=== PATIENT | male | born 1965 | race Caucasian/White ===

== ENCOUNTER → 2018-04-21 17:51 | Outpatient (CLI) | payer BC, SELFPAY ==
--- NOTE | 2018-04-21 18:14 | DI.RAD.S_ITS ---
PROCEDURE: XR FOOT LT MIN 3V INDICATIONS: 1st MTP swelling TECHNIQUE: 3 views of the foot were acquired. COMPARISON: None. FINDINGS: Bones: No fractures or dislocations. No suspicious bony lesions. There is mild first MTP joint degeneration. No definite erosions are seen. Diffuse interphalangeal degenerative joint disease in the lesser toes. Small posterior and plantar calcaneal spur. Soft tissues: Mild soft tissue swelling seen at the first MTP joint. IMPRESSION: Mild first MTP degeneration. Mild first MTP soft tissue swelling. Recommend clinical correlation. Posterior and plantar calcaneal spurs are Dictated by: Slade Garcia M.D. on 04/21/2018 at 18:56 Approved by: Slade Garcia M.D. on 04/21/2018 at 18:58
== END ==
PROVIDERS: Visit Provider Physician Assistant
DX: M25.475 Effusion, left foot (principal)
CPT/HCPCS: 36415; 73630; 84550

== ENCOUNTER → 2019-09-30 09:34 | Outpatient (CLI) | payer BC, SELFPAY ==
--- NOTE | 2019-09-30 | DI.US.S_ITS ---
PROCEDURE: US SCROTUM INDICATIONS: SCROTAL PAIN TECHNIQUE: Real-time scanning was performed of the scrotum and testicles, with image documentation. Color and pulse Doppler interrogation was performed of both testicles. COMPARISON: None. FINDINGS: Right: Testicle is normal in size at 4.8 x 3.2 x 2.2 cm, and homogenous in echotexture. Epididymis is normal in overall size and morphology. No hydrocele is seen. Overlying scrotal skin is normal in thickness. Left: Testicle is normal in size at 4.6 x 2.8 x 5 cm, and homogeneous in echotexture. Epididymis is normal in overall size. A 6 mm left epididymal head cyst can be seen. There is a trace left-sided hydrocele. Overlying scrotal skin is normal in thickness. Doppler: Color and pulse Doppler demonstrate normal and symmetric arterial flow in both testicles. Bilateral varicoceles can be seen. IMPRESSION: Normal appearing testicles. No abnormal testicular vascularity. Bilateral varicoceles are seen. Trace left-sided hydrocele. Dictated by: Anderson Yu M.D. on 09/30/2019 at 10:39 Approved by: Anderson Yu M.D. on 09/30/2019 at 10:49
== END ==
PROVIDERS: Referring Provider Specialist; Visit Provider Specialist
DX: N50.82 Scrotal pain (principal); I86.1 Scrotal varices
CPT/HCPCS: 76870

== ENCOUNTER → 2019-11-11 08:34 | Outpatient (CLI) | payer BC, SELFPAY ==
--- NOTE | 2019-11-11 | DI.CT.S_ITS ---
PROCEDURE: CT KIDNEY URETER BLADDER (KUB) INDICATIONS: Unspecified symptoms and signs involving the urinary system TECHNIQUE: Noncontrast 5 mm thick sections acquired from the diaphragms to the symphysis. 5 mm thick coronal and sagittal reformats were then performed. For radiation dose reduction, the following was used: automated exposure control, adjustment of mA and/or kV according to patient size. COMPARISON: None. FINDINGS: Image quality: Excellent. Lung bases: Lung bases are clear. Heart size is normal. Urinary system: Both kidneys are normal in size. No kidney stones. No hydronephrosis or perinephric fat stranding. Both ureters appear non-dilated throughout their expected courses. Bladder wall thickness is normal; no calcified bladder stones. Other solid organs: Liver is normal in size. Gallbladder is partially decompressed but appears normal. Pancreas is normal in contours. Spleen is normal in size. No adrenal nodules. Peritoneum and bowel: Unenhanced bowel loops demonstrate normal wall thickness and caliber. Occasional sigmoid diverticulosis. Normal appendix. No free fluid or air. Nodes and vessels: No retroperitoneal or mesenteric adenopathy by size criteria. Aorta and inferior vena cava are normal in caliber. Abdominal wall: No ventral hernias. Pelvis: No free pelvic fluid. No inguinal hernias or adenopathy. Prostate gland size at the upper limits of normal measuring 4.5 cm in transverse diameter. Bones: No suspicious bony lesions. Degenerative changes in the hip joints. No vertebral body compression fractures. IMPRESSION: 1. No evidence of urinary calcification or obstructive uropathy. 2. Minimal prostatomegaly. Dictated by: Selena Reza M.D. on 11/11/2019 at 8:56 Approved by: Selena Reza M.D. on 11/11/2019 at 9:03
== END ==
PROVIDERS: PCP Internal Medicine; Referring Provider Specialist; Visit Provider Specialist
DX: R39.9 Unspecified symptoms and signs involving the genitourinary system (principal); K57.30 Diverticulosis of large intestine without perforation or abscess without bleeding
CPT/HCPCS: 74176

== ENCOUNTER → 2020-03-08 14:54 | Outpatient (ROUT) | payer BC, SELFPAY ==
[2020-03-08 15:15] LABS: Add Manual Diff / Slide Review NO; Basophils Absolute Auto 100 /uL (0-100); Basophils Percent Auto 0.7 % (0-2); Eosinophils Absolute Auto 300 /uL (0-450); Eosinophils Percent Auto 3.6 % (2-4); Hematocrit 46.7 % (41-53); Hemoglobin 15.9 g/dL (13.5-17.5); Lymphocytes Absolute Auto 2300 /uL (1100-4500); Lymphocytes Percent Auto 30.3 % (25-40); Mean Corpuscular HGB Conc 34.2 % (30-36); Mean Corpuscular Hemoglobin 31.7 PG (26-34); Mean Corpuscular Volume 92.9 fL (80-100); Monocytes Absolute Auto 600 /uL (0-900); Monocytes Percent Auto 7.4 % (3-14); Neutrophils Absolute Auto 4400 /uL (1500-7000); Platelet Count 262 X10^3/uL (150-400); Red Blood Cell Count 5.03 X10^6/uL (4.5-5.9); Red Cell Distribution Width 13.3 % (11.6-14.8); White Blood Cell Count 7.6 X10^3/uL (4.5-11.0)
[2020-03-08 16:22] LABS: TSH w/ Reflex to FT4 2.25 uIU/mL (0.47-4.68)
[2020-03-08 16:46] LABS: Alanine Aminotransferase 26 IU/L (<50); Albumin 4.3 g/dL (3.5-5.0); Albumin Globulin Ratio 1.7 (1.0-2.8); Alkaline Phosphatase 73 U/L (38-126); Aspartate Aminotransferase 27 IU/L (17-59); BUN Creatinine Ratio 14.3 (6-22); Bilirubin Total 0.6 mg/dL (0.2-1.3); Blood Urea Nitrogen 13 mg/dL (9-20); Calcium 9.2 mg/dL (8.4-10.2); Carbon Dioxide 28 mmol/L (22-32); Chloride 103 mmol/L (98-107); Cholesterol 188 mg/dL (140-199); Estimated Glomerular Filt Rate > 60.0 mL/min (>60); Globulin 2.5 g/dL (1.7-4.1); Glucose 117 mg/dL (70-100); HDL Cholesterol 28 mg/dL (40-60); HEMOLYSIS < 15 (0-50); Potassium 3.7 mmol/L (3.4-5.1); Sodium 140 mmol/L (137-145); Total Protein 6.8 g/dL (6.3-8.2); Triglycerides 416 mg/dL (35-150); Uric Acid 7.8 mg/dL (3.5-8.5)
== END ==
PROVIDERS: PCP Internal Medicine; Visit Provider Internal Medicine
DX: Z00.00 Encounter for general adult medical examination without abnormal findings (principal); R00.2 Palpitations; M10.9 Gout, unspecified
CPT/HCPCS: 80053; 80061; 84443; 84550; 85025

== ENCOUNTER → 2020-07-07 10:17 | Outpatient (CLI) | payer BC, SELFPAY ==
[2020-07-07 12:23] LABS: Prostate Specific Antigen 1.93 ng/mL (0.10-4.00)
== END ==
PROVIDERS: PCP Internal Medicine; Referring Provider Specialist; Visit Provider Specialist
DX: N40.0 Benign prostatic hyperplasia without lower urinary tract symptoms (principal)
CPT/HCPCS: 36415; 83655; 84153

== ENCOUNTER 2021-08-25 14:29 | Emergency (ER) | payer BC, SELFPAY ==
[2021-08-25 15:00] VITALS: BP 148/87; PULSE 78; RESP 20; TEMP 35.9; O2SAT 96; BMI 26.9
--- NOTE | 2021-08-25 15:07 | DI.US.S_ITS ---
PROCEDURE: US PERIPH VENOUS LOW EXTREM LT INDICATIONS: r/o dvt TECHNIQUE: Real-time imaging, as well as color and pulse Doppler interrogation, were performed of the lower extremity deep veins from the inguinal ligament to the popliteal fossa. COMPARISON: None. FINDINGS: The common femoral, femoral and popliteal veins are normally compressible, and free of intraluminal thrombus. Color and pulse Doppler demonstrate normal phasic intraluminal flow. There is normal augmentation response to distal compression maneuver. Distal soft tissue swelling is seen, with a poorly defined fluid collection seen at the level of the ankle, which measures 1.5 x 0.9 x 2.3 cm. IMPRESSION: Negative for deep venous thrombosis. Poorly defined fluid collection seen at the level of the ankle. The clinical significance of this is uncertain, although it may represent a joint effusion. Dictated by: Anderson Yu M.D. on 08/25/2021 at 15:01 Approved by: Anderson Yu M.D. on 08/25/2021 at 15:02
--- NOTE | 2021-08-25 18:37 | ED.EXTPRO ---
HPI - Extremity Problem General Chief complaint: Extremity Problem,Nontraumatic Stated complaint: Possible blood clot in left leg Time Seen by Provider: 08/25/21 18:37 Source: patient Mode of arrival: Family Vehicle Limitations: no limitations History of Present Illness HPI Narrative: This is a 56-year-old male comes emergency department with concern for blood clot in his left leg. 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 Patient noticed his she on his left foot felt tight. This morning when he woke up was quite painful to walk on. Patient states that he has noticed some swelling on the lateral side of the foot and that the blood clot vessels seem enlarged. Patient has not any fevers, no warmth, no redness it is appreciated. He has a history of gout in his great toe on the left remotely when he was eating risk it 3 times a week but no longer does this. Patient has not had any fevers or chills. He does have pain with weight-bearing. He does not recall a traumatic history but he states it does feel like he dropped something on his foot. He does not have pain up into the ankle or the leg. He did take 4 aspirin today, he takes a PPI daily MVI. He denies any other major medical issues. Related Data Previous Rx's Medication Instructions Recorded tadalafil 2.5 mg tablet (Cialis) 2.5 mg PO .5mg MDD #90 tab MDD 5 01/25/ mg MDD ibuprofen 600 mg tablet 600 mg PO Q6H PRN #20 tab 08/25/21 sulfamethoxazole 800 1 tab PO Q12H #14 tab 08/25/21 mg-trimethoprim 160 mg tablet (Bactrim DS) Allergies Allergy/AdvReac Type Severity Reaction Status Date / Time codeine Allergy Verified 08/25/21 15:07 gluten Allergy Verified 08/25/21 15:07 lactase [From Dairy Aid] Allergy Verified 08/25/21 15:07 Penicillins Allergy Verified 08/25/21 15:07 wheat Allergy Verified 08/25/21 15:07 Review of Systems Review of Systems ROS Unobtainable: All systems reviewed & are unremarkable except as noted in HPI and below Patient History Medical History BPH (benign prostatic hyperplasia) BPH w urinary obs/LUTS GERD (gastroesophageal reflux disease) Gout Family History Father Cancer High cholesterol Hypertension Thyroid disorder Grandfather Stroke Hypertension Mother Migraines Social History marital status: number of children: 1 Smoking Status: Never smoker alcohol intake: never caffeine: No Smoking Status: Never smoker alcohol intake frequency: 0-2 drinks per day Substance Use Type: does not use Exam Narrative Exam Narrative: GENERAL: Alert and oriented x three, male in mild distress. HEENT: Head normocephalic, atraumatic, EOMI, pupils reactive, face symmetric, moist mucous membranes NECK: Supple, full range of motion CARDIOVASCULAR: Regular rate and rhythm without murmurs, rubs or gallops. RESPIRATORY: Breath sounds equal bilaterally, no wheezes rales or rhonchi. EXTREMITIES: Normal range of motion, no clubbing. Neurovascularly intact. Patient has mild tenderness over the proximal 5th metatarsal. He does have some swelling localized to the proximal 5th metatarsal and dorsum of the foot. There is no erythema, warmth. There is no induration. Patient is nontender elsewhere in his foot. He has 2+ dorsalis pedis and posterior pulses. He has normal sensation throughout the foot. There is some very faint erythema over the dorsum but not the lateral portion of swelling. No Bruising or ecchymosis. No lacerations or obvious injuries. NEUROLOGICAL: Cranial nerves II through XII grossly intact. Moving all extremities SKIN: Warm, dry, no petechiae, no rashes or lesions. Initial Vital Signs Initial Vital Signs: Vital Signs Temperature 96.6 F L 08/25/21 15:00 Pulse Rate 78 08/25/21 15:00 Respiratory Rate 20 08/25/21 15:00 Blood Pressure 148/87 H 08/25/21 15:00 Pulse Oximetry 96 08/25/21 15:00 Course Orders Ordered: ED Orders 08/25/21 18:42 XR foot LT min 3V Stat Vital Signs Vital signs: Vital Signs - 8 hr 08/25/21 19:31 Pulse Rate 66 Respiratory Rate 12 Blood Pressure 132/86 Pulse Oximetry 98 MDM - Extremity (Nontraumatic) Imaging Data US - DVT: Radiologist's Impression: Yuri Soliz??56??M??1965 ? Allergy/Adv: codeine, gluten, lactase, Penicillins, wheat (More??) Close Vascular Ultrasound (Signed) Anderson Yu - 08/25/21 Abdomen/Pelvis CT (Signed) Abdi Rezaistin - 11/11/19 Scrotum Ultrasound (Signed) Anderson Yu - 09/30/19 Foot X-Ray (Signed) Slade Garcia - 04/21/18 Launch?Image [address] [address] Ultrasound Report Signed Patient: Yuri Soliz MR#: [id number] : 1965 Acct:[id number] Age/Sex: 56 / M Date of Service: 08/25/21 Loc: ED Accession Number: [id number] ?? Procedure: US periph venous low extrem lt Ordering Provider: Rhianna Mccann MD PROCEDURE:? US PERIPH VENOUS LOW EXTREM LT ? INDICATIONS:? r/o dvt ? TECHNIQUE:? Real-time imaging, as well as color and pulse Doppler interrogation, were performed of the lower extremity deep veins from the inguinal ligament to the popliteal fossa.? ? COMPARISON:? None. ? FINDINGS:? The common femoral, femoral and popliteal veins are normally compressible, and free of intraluminal thrombus.? Color and pulse Doppler demonstrate normal phasic intraluminal flow.? There is normal augmentation response to distal compression maneuver. ? ? Distal soft tissue swelling is seen, with a poorly defined fluid collection seen at the level of the ankle, which measures 1.5 x 0.9 x 2.3 cm. ? ? IMPRESSION:? ? Negative for deep venous thrombosis. ? Poorly defined fluid collection seen at the level of the ankle.? The clinical significance of this is uncertain, although it may represent a joint effusion. ? ? Dictated by: Anderson Yu M.D. on 08/25/2021 at 15:01 ? ? Approved by: Anderson Yu M.D. on 08/25/2021 at 15:02?? Extremity x-ray #1: Radiologist's Impression: [address] [address] XRay Report Signed Patient: Yuri Soliz MR#: [id number] : 1965 Acct:[id number] Age/Sex: 56 / M Date of Service: 08/25/21 Loc: ED Accession Number: [id number] ?? Procedure: XR foot LT min 3V Ordering Provider: Shantal Her D.O. PROCEDURE:? XR FOOT LT MIN 3V ? INDICATIONS:? pain swelling ? TECHNIQUE:? 3 views of the foot were acquired.? ? COMPARISON:? [facility], CR, XR FOOT LT MIN 3V, 04/21/2018, 17:58. ? FINDINGS:? ? Bones:? No fractures or dislocations.? No suspicious bony lesions.? Scattered IP degenerative changes are present most notable at the 1st MTP joint. ? Soft tissues:? No tibiotalar joint effusion.? Achilles tendon appears normal.? ? ? IMPRESSION:? No visualized acute fracture or dislocation. However, if clinical concern and/or pain persist, short interval imaging followup in 7-10 days is recommended, as occult injury cannot be definitively excluded. ? ? Dictated by: Flor Leyva M.D. on 08/25/2021 at 19:09 ? ? Approved by: Flor Leyva M.D. on 08/25/2021 at 19:10?? [facility] Narrative Medical decision making narrative: This is a 56-year-old male who comes with concern for DVT. 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 DVT is negative on ultrasound but he has [place] poorly defined fluid collection at the level of the ankle. This does not correlate directly with the area of swelling on his foot. He does have some tenderness of the proximal 5th metatarsal. He does not recall a traumatic injury but x-ray was included and is negative. Patient does have a history of gout in his 1st great toe. Discussed with patient this is a possibility. He is comfortable with NSAIDs at this time but we did discuss there is some light erythema and if he has worsening symptoms antibiotic would be appropriate and was provided. Return precautions were discussed and that with more time patient's exact cause of symptoms may be revealed more clearly. Discharge Plan Departure Patient Disposition: Home Clinical Impression: Localized swelling of left foot Instructions: DI for Cellulitis -- Adult Activity Restrictions/Additional Instructions: In the next week if you are not having any improvement. Your ultrasound shows a small partial fluid collection at the ankle. You may take ibuprofen up to 600 mg every 6 hours as needed for pain and/or Tylenol up to a 1000 mg every 8 hours. Antibiotics can be taken 1 tablet every 12 hours. Prescription sent to [facility] in [place]. Please return for fevers, new or worsening redness, swelling, increasing pain, weakness numbness, swelling of her leg or other new or concerning symptoms. Prescriptions: New sulfamethoxazole-trimethoprim [Bactrim DS] 800-160 mg tablet 1 tab PO Q12H Qty: 14 0RF ibuprofen 600 mg tablet 600 mg PO Q6H PRN (Reason: pain) Qty: 20 0RF No Action tadalafil [Cialis] 2.5 mg tablet 2.5 mg PO .5mg MDD MDD 5 mg MDD Qty: 90 0RF Referrals: Otoniel Melendez MD [Primary Care Provider] -
--- NOTE | 2021-08-25 18:42 | DI.RAD.S_ITS ---
PROCEDURE: XR FOOT LT MIN 3V INDICATIONS: pain swelling TECHNIQUE: 3 views of the foot were acquired. COMPARISON: [facility], , XR FOOT LT MIN 3V, 04/21/2018, 17:58. FINDINGS: Bones: No fractures or dislocations. No suspicious bony lesions. Scattered IP degenerative changes are present most notable at the 1st MTP joint. Soft tissues: No tibiotalar joint effusion. Achilles tendon appears normal. IMPRESSION: No visualized acute fracture or dislocation. However, if clinical concern and/or pain persist, short interval imaging followup in 7-10 days is recommended, as occult injury cannot be definitively excluded. Dictated by: Flor Leyva M.D. on 08/25/2021 at 19:09 Approved by: Flor Leyva M.D. on 08/25/2021 at 19:10
[2021-08-25 19:31] VITALS: BP 132/86; PULSE 66; RESP 12; O2SAT 98
== END 2021-08-25 19:32 | disposition home or self-care (01) ==
PROVIDERS: Emergency Provider Emergency Medicine; PCP Family Medicine
DX: M79.672 Pain in left foot (principal); M79.89 Other specified soft tissue disorders
CPT/HCPCS: 73630; 93971; 99283

== ENCOUNTER → 2022-05-28 11:38 | Outpatient (CLI) | payer BC, SELFPAY ==
[2022-05-28 12:46] LABS: Add Manual Diff / Slide Review NO; Basophils Absolute Auto 100 /uL (0-100); Basophils Percent Auto 0.9 % (0-2); Eosinophils Absolute Auto 200 /uL (0-450); Eosinophils Percent Auto 3.1 % (2-4); Hematocrit 47.2 % (41-53); Hemoglobin 15.9 g/dL (13.5-17.5); Lymphocytes Absolute Auto 2400 /uL (1100-4500); Lymphocytes Percent Auto 32.3 % (25-40); Mean Corpuscular HGB Conc 33.7 % (30-36); Mean Corpuscular Volume 91.9 fL (80-100); Monocytes Absolute Auto 500 /uL (0-900); Monocytes Percent Auto 6.8 % (3-14); Neutrophils Absolute Auto 4300 /uL (1500-7000); Neutrophils Percent Auto 56.9 % (50-75); Platelet Count 297 X10^3/uL (150-400); Red Blood Cell Count 5.13 X10^6/uL (4.5-5.9); Red Cell Distribution Width 13.8 % (11.6-14.8); White Blood Cell Count 7.5 X10^3/uL (4.5-11.0)
[2022-05-28 13:29] LABS: Alanine Aminotransferase 30 IU/L (<50); Albumin 4.3 g/dL (3.5-5.0); Albumin Globulin Ratio 1.4 (1.0-2.8); Alkaline Phosphatase 70 U/L (38-126); Aspartate Aminotransferase 26 IU/L (17-59); BUN Creatinine Ratio 19.2 (6-22); Bilirubin Total 0.6 mg/dL (0.2-1.3); Blood Urea Nitrogen 20 mg/dL (9-20); Calcium 9.6 mg/dL (8.4-10.2); Carbon Dioxide 28 mmol/L (22-32); Chloride 101 mmol/L (98-107); Cholesterol 194 mg/dL (140-199); Estimated Glomerular Filt Rate > 60 mL/min (>60); Glucose 87 mg/dL (70-100); HDL Cholesterol 34 mg/dL (40-60); HEMOLYSIS < 15 (0-50); LDL Cholesterol Calculated 98 mg/dL (<100); Potassium 4.5 mmol/L (3.4-5.1); Sodium 140 mmol/L (137-145); Total Protein 7.3 g/dL (6.3-8.2); Triglycerides 308 mg/dL (35-150)
[2022-05-28 13:57] LABS: TSH w/ Reflex to FT4 2.18 uIU/mL (0.47-4.68)
== END ==
PROVIDERS: PCP Family Medicine; Referring Provider Family Medicine; Visit Provider Family Medicine
DX: Z13.220 Encounter for screening for lipoid disorders (principal); I45.2 Bifascicular block; R00.2 Palpitations
CPT/HCPCS: 36415; 80053; 80061; 84443; 85025

== ENCOUNTER → 2022-06-07 07:49 | Outpatient (CLI) | payer BC, SELFPAY ==
--- NOTE | 2022-06-07 07:50 | DI.ECHO.S_ITS ---
[place] [place]---------+ [facility] +---------+ : : [address] : : : : [id number] : : : : Phone: [phone]+ Echocardiogram Report + + :Name: TIFFANIE URBANO Study Date: 06/07/2022 Height: 74 in : :[facility] ReadingLocation: Weight: 219 lb : : Gender: Male BSA: 2.3 m2 : :: 1965 Age: 57 yrs BP: 155/88 mmHg: :Reason For Study: Palpitations : :Ordering Physician: BRIANA, : :HERMAN Performed By: Stanford Tovar : :Referring: HERMAN WARREN : + + Interpretation Summary The left ventricle is normal in size and wall thickness. Left ventricular systolic function is normal. The ejection fraction is estimated to be 60-65%. There are no focal wall motion abnormalities. Diastolic parameters suggest probable normal left ventricular diastolic function and normal filling pressures. The right ventricle is normal in size and function. The right ventricular systolic pressure is estimated to be at least 23 mmHg based on an estimated right atrial pressure of 3 mm Hg. Both atria are normal in size. There is mild mitral regurgitation. There is no other significant valvular heart disease. The aortic root is normal size. Procedure: A two-dimensional transthoracic echocardiogram with color flow and Doppler was performed. The study quality was technically adequate. There is no prior echocardiogram noted for this patient. The patient was in normal sinus rhythm during the exam. Left Ventricle: The left ventricle is normal in size and wall thickness. Left ventricular systolic function is normal. The ejection fraction is estimated to be 60-65%. There are no focal wall motion abnormalities. Diastolic parameters suggest probable normal left ventricular diastolic function and normal filling pressures. Right Ventricle: The right ventricle is normal in size and function. Atria: Both atria are normal in size. The interatrial septum grossly appears intact with no obvious evidence for an atrial septal defect. Mitral Valve: The mitral valve is normal in structure and function. There is mild mitral regurgitation. Aortic Valve: The aortic valve is normal in structure and function. No aortic regurgitation is present. Tricuspid Valve: The tricuspid valve is normal in structure and function. There is trace tricuspid regurgitation. The right ventricular systolic pressure is estimated to be at least 23 mmHg based on an estimated right atrial pressure of 3 mm Hg. Pulmonic Valve: The pulmonic valve is normal in structure and function. There is no pulmonic valvular regurgitation. There is no other significant valvular heart disease. Great Vessels: The aortic root is normal size. The dimensions of the ascending aorta are normal. The IVC is of normal diameter and collapses greater than 50% with a sniff. This suggests a low right atrial pressure of 3 mm Hg. Pericardium/ Pleura There is no pericardial effusion. There is no pleural effusion. MMode/2D Measurements & Calculations LVIDd: 5.1 cm LVOT diam: 2.3 cm LVIDs: 3.4 cm Ao root diam: 3.4 cm FS: 33.2 % asc Aorta Diam: 3.6 cm IVSd: 1.1 cm LVPWd: 1.1 cm LV james. diameter/BSA (cm/m^2): 2.2 LV sys. diameter/BSA (cm/m^2): 1.5 LA A2 area: 19.7 cm2 RA long axis: 5.0 cm LA A4 area: 23.1 cm2 RA area: 13.3 cm2 LA length (vol): 5.9 cm RA vol: 30.1 ml LA vol: 65.8 ml RA : 13.3 ml/m2 LA vol index: 29.1 ml/m2 TAPSE: 2.4 cm Doppler Measurements & Calculations Ao V2 max: 167.7 cm/sec LVOT Max Esteban: 137.5 cm/sec Ao V2 mean: 121.8 cm/sec LV V1 max P.6 mmHg Ao max P.2 mmHg LV V1 VTI: 28.8 cm Ao mean P.4 mmHg FRANCINE(I,D): 3.3 cm2 Ao V2 VTI: 35.7 cm FRANCINE(V,D): 3.4 cm2 sev ratio: 0.81 FRANCINE indexed to BSA (cm^2/m^2): 1.5 MV E max esteban: 83.6 cm/sec TR max esteban: 221.9 cm/sec MV A max esteban: 79.6 cm/sec TR max P.7 mmHg MV E/A: 1.1 Med Peak E' Esteban: 7.7 cm/sec E/E' med: 10.8 Lat Peak E' Esteban: 10.1 cm/sec E/E' lat: 8.3 E/e' average: 9.6 MV dec time: 0.21 sec SV(LVOT): 118.0 ml Reading Physician:08:54 AM
== END ==
PROVIDERS: PCP Family Medicine; Referring Provider Family Medicine; Visit Provider Family Medicine
DX: I34.0 Nonrheumatic mitral (valve) insufficiency (principal); I45.2 Bifascicular block
CPT/HCPCS: 93306

== ENCOUNTER 2022-06-09 20:27 | Emergency (ER) | payer BC, SELFPAY ==
[2022-06-09] VITALS (9 sets, daily range): BP systolic 175–185; BP diastolic 95–106; PULSE 65–88; RESP 14–24; TEMP 37.2; O2SAT 94–97
--- NOTE | 2022-06-09 20:41 | DI.RAD.S_ITS ---
PROCEDURE: XR ACUTE ABDOMEN SERIES INDICATIONS: severe upper abdominal pain TECHNIQUE: One view chest and two views of the abdomen were acquired. COMPARISON: None. FINDINGS: Surgical changes and devices: Cardiac pacing device is seen projecting over left upper lung field.. Chest: Lungs are clear. Heart size is normal. No pleural effusions. No pneumoperitoneum. Abdomen: [id number] fecal stasis throughout the colon is seen. No bowel obstruction. No gross pneumoperitoneum. No suspicious calcifications. Visualized solid organ contours appear normal. Bones: No suspicious bony lesions. IMPRESSION: [id number]-[id number] constipation. No gross free air. No acute cardiopulmonary pathology. Dictated by: Michael Hong M.D. on 06/09/2022 at 21:05 Approved by: Michael Hong M.D. on 06/09/2022 at 21:05
--- NOTE | 2022-06-09 21:05 | DI.US.S_ITS ---
PROCEDURE: US ABDOMEN LIMITED INDICATIONS: severe epigastric pain TECHNIQUE: Real-time scanning was performed of the abdominal and retroperitoneal organs, with image documentation. COMPARISON: [facility], CT, CT ABDOMEN PELVIS W CON, 06/09/2022, 21:57. FINDINGS: Liver: Liver is normal in size. Diffusely increased liver parenchymal echotexture is seen consistent with hepatic steatosis which was also seen on CT study. No discrete hepatic lesion is noted. Gallbladder: Gallbladder is contracted. No gallstone. No gallbladder wall thickening or pericholecystic fluid. No sonographic Jennings sign. Biliary ducts: Intrahepatic bile ducts are non-dilated. Extrahepatic bile duct caliber measures 2.4 mm. Normal is 6-7 mm or less in diameter, or 10 mm or less post-cholecystectomy. Pancreas: Visualized portions of the pancreas are sonographically normal. Kidneys: Lobulated area involving mid pole right kidney measures 3.2 x 3 x 2.4 cm in size. No hydronephrosis. No definite solid appearing renal lesion. IMPRESSION: 1. Hepatic steatosis, no discrete hepatic lesion. 2. Normal appearing gallbladder. No biliary ductal dilatation. 3. Questionable lobulated area involving mid pole of right kidney as above, please correlate with CT of abdomen and pelvis findings. Dictated by: Michael Hong M.D. on 06/09/2022 at 22:11 Approved by: Michael Hong M.D. on 06/09/2022 at 22:15
[2022-06-09] MEDS: MAG HYDROX/ALUMINUM/SIMETH SUS 20 ML, LIDOCAINE VISCOUS 2% 15 ML PO (21:06)
--- NOTE | 2022-06-09 21:07 | ED.ABDPAIN ---
HPI - Abdominal Pain General Chief Complaint: Abdominal Pain Stated Complaint: ABD pain...pos food poisoning Time Seen by Provider: 06/09/22 20:32 Source: patient Mode of arrival: Ambulatory History of Present Illness HPI narrative: 57-year-old male nonsmoker with noncontributory medical history presents with a chief complaint of severe epigastric pain that started about 4 or 5 hours ago. He states that it has no obvious provocation, palliation and denies any radiation. He states his sharp and stabbing pain that comes in waves every few minutes. He states it is 10/10 and he is never experienced this before. He denies any alcohol. He states that he is nauseated but denies any vomiting. He denies any prior abdominal surgeries and states he is had no change in his bowel habits such as constipation or diarrhea. He denies any dysuria, frequency or urgency Related Data Previous Rx's Medication Instructions Recorded tadalafil 2.5 mg tablet (Cialis) 2.5 mg PO .5mg MDD #90 tabs 01/25/21 ibuprofen 600 mg tablet 600 mg PO Q6H PRN pain #20 tabs 08/25/21 ondansetron 4 mg disintegrating 4 mg PO TID-QID PRN nausea and 06/09/22 tablet vomiting #10 tabs pantoprazole 40 mg tablet,delayed 40 mg PO DAILY #30 tabs 06/09/22 release (Protonix) Allergies Allergy/AdvReac Type Severity Reaction Status Date / Time codeine Allergy Verified 08/25/21 15:07 gluten Allergy Verified 08/25/21 15:07 lactase [From Dairy Aid] Allergy Verified 08/25/21 15:07 Penicillins Allergy Verified 08/25/21 15:07 wheat Allergy Verified 08/25/21 15:07 Review of Systems Review of Systems Narrative: GENERAL: Denies chills, fatigue, malaise, fever, sweats. HEENT: Denies sinus pain, ear pain, sore throat, difficulty swallowing, dizziness. RESPIRATORY: Denies dyspnea, cough, wheezing, hemoptysis, sputum. CARDIOVASCULAR: Denies chest pain, palpitations, orthopnea, edema, GASTROINTESTINAL: See HPI : Denies dysuria, frequency, incontinence, hematuria, urinary retention. MUSCULOSKELETAL: denies weakness, joint pain, or bony pain SKIN: Denies rash, skin lesions, or other NEUROLOGIC: Denies weakness, headache, numbness, change in speech, confusion, seizures, incoordination. PSYCHIATRIC: No concerning psychosocial issues. 12 point review of systems is negative except for those stated above Patient History Medical History BPH (benign prostatic hyperplasia) BPH w urinary obs/LUTS GERD (gastroesophageal reflux disease) Gout Intermittent palpitations RBBB (right bundle branch block with left anterior fascicular block) Family History Father Cancer High cholesterol Hypertension Thyroid disorder Grandfather Stroke Hypertension Mother Migraines Social History marital status: number of children: 1 Smoking Status: Never smoker alcohol intake: never caffeine: No Smoking Status: Never smoker alcohol intake frequency: 0-2 drinks per day Substance Use Type: does not use Exam Narrative Exam Narrative: GENERAL: [57] year old patient appears stated age. Well-developed patient, in obvious discomfort, rubbing his upper abdomen HEAD: Atraumatic. Normocephalic. EYES: Pupils equal round and reactive. Extraocular motions intact. No scleral icterus. No injection or drainage. ENT: Nose without bleeding, purulent drainage. Throat without erythema, tonsillar hypertrophy or exudate. Airway patent. NECK: Trachea midline. Non tender CARDIOVASCULAR: Regular rate and rhythm without murmurs, gallops, or rubs. RESPIRATORY: Clear to auscultation. Breath sounds equal bilaterally. No wheezes, rales, or rhonchi. GASTROINTESTINAL: Abdomen soft, non-tender, nondistended. Bowel sounds present in all 4 quadrants EXTREMITIES: No edema or joint tenderness. BACK: Nontender without deformity or crepitance. No flank tenderness. NEURO: AOx3. SKIN: No rash or erythema of visible areas Initial Vital Signs Initial Vital Signs: Vital Signs Temperature 98.9 F 06/09/22 20:36 Pulse Rate 76 06/09/22 20:36 Respiratory Rate 22 06/09/22 20:36 Blood Pressure 175/98 H 06/09/22 20:36 Pulse Oximetry 97 06/09/22 20:36 Oxygen Delivery Method 06/09/22 20:36 Course Orders Ordered: ED Orders 06/09/22 20:41 XR acute abdomen series Stat EKG-12 Lead Stat 06/09/22 21:05 US abdomen limited Stat 06/09/22 21:10 Complete Blood Count AUTO DIFF Stat Comprehensive Metabolic Panel Stat Lipase Stat 06/09/22 21:49 CT abdomen pelvis w con Stat Discontinued Medications Al Hydrox/Mg Hydrox/Simethicone 20 ml/ Lidocaine HCl 15 ml 0 ml PO NOW ONE Stop: 06/09/22 20:42 Last Admin: 06/09/22 21:06 Dose: 35 ml Documented By: SERENE Sodium Chloride (Normal Saline 0.9%) 1,000 mls @ 1,000 mls/hr IV BOLUS ONE Stop: 06/09/22 21:40 Last Infusion: 06/09/22 22:07 Dose: 0 mls/hr Documented By: Admin: 06/09/22 21:10 Dose: 1,000 mls/hr Documented By: SERENE Ondansetron HCl (Ondansetron 4 Mg/2 Ml Inj) 4 mg IV NOW ONE Stop: 06/09/22 20:42 Last Admin: 06/09/22 21:10 Dose: 4 mg Documented By: SERENE Ondansetron HCl (Ondansetron 4 Mg Odt Prepack) 1 bottle MISC SEEINSTR ONE Stop: 06/09/22 23:07 Pantoprazole Sodium (Pantoprazole 40 Mg Vial) 40 mg IV NOW ONE Stop: 06/09/22 20:42 Last Admin: 06/09/22 21:10 Dose: 40 mg Documented By: SERENE Vital Signs Vital signs: Vital Signs - 8 hr 06/09/22 20:36 06/09/22 20:45 06/09/22 20:47 Temperature 98.9 F Pulse Rate 76 65 Respiratory Rate 22 14 Blood Pressure 175/98 H 176/95 H Pulse Oximetry 97 Oxygen Delivery Method Room Air 06/09/22 20:47 Temperature Pulse Rate 70 Respiratory Rate 17 Blood Pressure Pulse Oximetry 94 Oxygen Delivery Method MDM - Abdominal Pain Lab Data Result diagrams: 06/09/22 21:10 06/09/22 21:10 Labs: Lab Results 06/09/22 06/09/22 Range/Units 21:10 21:10 WBC 11.3 H (4.5-11.0) X10^3/uL RBC 4.95 (4.5-5.9) X10^6/uL Hgb 15.6 (13.5-17.5) g/dL Hct 44.6 (41-53) % MCV 90.0 (80-100) fL MCH 31.4 (26-34) PG MCHC 35.0 (30-36) % RDW 13.6 (11.6-14.8) % Plt Count 271 (150-400) X10^3/uL Neut % (Auto) 76.0 H (50-75) % Lymph % (Auto) 16.8 L (25-40) % Meade % (Auto) 4.4 (3-14) % Eos % (Auto) 2.2 (2-4) % Baso % (Auto) 0.6 (0-2) % Neut # (Auto) 8600 H (7954-2777) /uL Lymph # (Auto) 1900 (1934-4779) /uL Meade # (Auto) 500 (0-900) /uL Eos # (Auto) 300 (0-450) /uL Baso # (Auto) 100 (0-100) /uL Sodium 138 (137-145) mmol/L Potassium 4.2 (3.4-5.1) mmol/L Chloride 102 (98-107) mmol/L Carbon Dioxide 30 (22-32) mmol/L BUN 15 (9-20) mg/dL Creatinine 0.95 (0.66-1.25) mg/dL Estimated GFR > 60 (>60) mL/min BUN/Creatinine Ratio 15.8 (6-22) Glucose 146 H (70-100) mg/dL Calcium 8.9 (8.4-10.2) mg/dL Total Bilirubin 0.4 (0.2-1.3) mg/dL AST 25 (17-59) IU/L ALT 26 (<50) IU/L Alkaline Phosphatase 69 (38-126) U/L Total Protein 7.8 (6.3-8.2) g/dL Albumin 4.4 (3.5-5.0) g/dL Globulin 3.4 (1.7-4.1) g/dL Albumin/Globulin Ratio 1.3 (1.0-2.8) Lipase 53 (23-300) U/L Imaging Data US - abdomen: Radiologist's Impression: [address] [address] Ultrasound Report Signed Patient: Yuri Soliz MR#: [id number] : 1965 Acct:[id number] Age/Sex: 57 / M Date of Service: 06/09/22 Loc: ED Accession Number: [id number] ?? Procedure: US abdomen limited Ordering Provider: Andrew Castellanos D.O. PROCEDURE:? US ABDOMEN LIMITED ? INDICATIONS:? severe epigastric pain ? TECHNIQUE:? Real-time scanning was performed of the abdominal and retroperitoneal organs, with image documentation.? ? COMPARISON:? [facility], CT, CT ABDOMEN PELVIS W CON, 06/09/2022, 21:57. ? FINDINGS:? ? Liver:? Liver is normal in size.? Diffusely increased liver parenchymal echotexture is seen consistent with hepatic steatosis which was also seen on CT study.? No discrete hepatic lesion is noted. ? Gallbladder:? Gallbladder is contracted.? No gallstone.? No gallbladder wall thickening or pericholecystic fluid.? No sonographic Jennings sign. ? Biliary ducts:? Intrahepatic bile ducts are non-dilated.? Extrahepatic bile duct caliber measures 2.4 mm.? Normal is 6-7 mm or less in diameter, or 10 mm or less post-cholecystectomy.? ? Pancreas:? Visualized portions of the pancreas are sonographically normal.? ? Kidneys:? Lobulated area involving mid pole right kidney measures 3.2 x 3 x 2.4 cm in size.? No hydronephrosis.? No definite solid appearing renal lesion. ? ? ? IMPRESSION:? 1. Hepatic steatosis, no discrete hepatic lesion. 2. Normal appearing gallbladder.? No biliary ductal dilatation. 3.? Questionable lobulated area involving mid pole of right kidney as above, please correlate with CT of abdomen and pelvis findings.? ? Dictated by: Michael Hong M.D. on 06/09/2022 at 22:11 ? ? Approved by: Michael Hong M.D. on 06/09/2022 at 22:15 ? CT scan - abdomen/pelvis: Radiologist's Impression: Close Abdomen/Pelvis CT (Signed) Michael Hong - 06/09/22 Abdomen Ultrasound (Signed) Michael Hong - 06/09/22 Chest/Abdomen X-ray (Signed) Michael Hong - 06/09/22 Echocardiogram Ultrasound (Signed) Yann Reyes - 06/07/22 Foot X-Ray (Signed) LeyvaFlor - 08/25/21 Vascular Ultrasound (Signed) Anderson Yu - 08/25/21 Abdomen/Pelvis CT (Signed) Selena Reza - 11/11/19 Scrotum Ultrasound (Signed) AimeeAnderson - 09/30/19 Foot X-Ray (Signed) Slade Garcia - 04/21/18 Launch?Image [address] [address] [address] Scan Report Signed Patient: Yuri Soliz MR#: [id number] : 1965 Acct:[id number] Age/Sex: 57 / M Date of Service: 06/09/22 Loc: ED Accession Number: [id number] ?? Procedure: CT abdomen pelvis w con Ordering Provider: Andrew Castellanos D.O. PROCEDURE:? CT ABDOMEN PELVIS W CON ? INDICATIONS:? severe abdominal pain ? TECHNIQUE:? After the administration of intravenous contrast, axial sections acquired from the lung bases to the pubic symphysis.? Coronal and sagittal reformats were performed.? For radiation dose reduction, the following was used:? automated exposure control, adjustment of mA and/or kV according to patient size.? ? COMPARISON:? [facility], , ABDOMEN LIMITED, 06/09/2022, 21:34. ? FINDINGS:? Image quality:? Excellent.? ? Lung bases:? 4 millimeter calcified granuloma is seen in posterior right middle lobe series 3, image 1. Heart:? No significant findings. ? ABDOMEN: Liver:? Liver is normal in size.? Moderate hepatic steatosis is seen, no discrete hepatic lesion is seen.? ? Gallbladder:? Gallbladder is contracted.? No calcified gallstone is seen.? No gallbladder wall thickening or pericholecystic fluid. Biliary ducts:? Unremarkable.? ? Pancreas:? Unremarkable.? ? Spleen:? Unremarkable.? ? Adrenal Glands:? Unremarkable.? ? Kidneys and Ureters:? Bilateral kidneys are normal in size and show normal enhancement.? No renal stones or hydronephrosis.? Slightly lobulated bilateral renal contour is seen which accounts for ultrasound findings. ? Stomach and Bowel:? There is no bowel obstruction.? Fluid distended stomach lumen is seen.? There is questionable small bowel wall thickening throughout the abdomen.? Mild wall thickening involving descending colon and sigmoid colon is present.? No abscess collection.? Sigmoid diverticulosis is seen, no significant pericolonic fat stranding. Peritoneum:? No abnormal intraperitoneal fluid.? No free air.? ? Ventral Wall: ? No hernias.? Abdominal Nodes:? No retroperitoneal or mesenteric adenopathy by size criteria.? Vessels:? Aorta and inferior vena cava are normal in size.? ? PELVIS: Pelvic Organs:? Unremarkable.? ? Bladder:? Unremarkable.? ? Pelvic Nodes: No enlarged lymph nodes.? Miscellaneous: No hernias are seen. ? ? ? Bones:? No suspicious bony lesion.? No acute vertebral body compression fracture. ? ? IMPRESSION:? 1. Small bowel and colon wall thickening as described above concerning for low-grade enterocolitis.? Colonic diverticulosis without evidence of acute diverticulitis.? No abscess collection.? No free fluid or free air. 2. No renal stones or hydronephrosis.? No discrete renal lesion is seen.? Ultrasound finding likely represent persistent lobulated renal contour. 3. Hepatic steatosis, no discrete hepatic lesion.? Normal appearing gallbladder.? ? ? Dictated by: Michael Hong M.D. on 06/09/2022 at 22:15 ? ? Approved by: Michael Hong M.D. on 06/09/2022 at 22:19 ? ECG Data Interpretation: [place] [address] XRay Report Signed Patient: Yuri Soliz MR#: [id number] : 1965 Acct:[id number] Age/Sex: 57 / M Date of Service: 06/09/22 Loc: ED Accession Number: [id number] ?? Procedure: XR acute abdomen series Ordering Provider: Andrew Castellanos D.O. PROCEDURE:? XR ACUTE ABDOMEN SERIES ? INDICATIONS:? severe upper abdominal pain ? TECHNIQUE:? One view chest and two views of the abdomen were acquired.? ? COMPARISON:? None. ? FINDINGS:? ? Surgical changes and devices:? Cardiac pacing device is seen projecting over left upper lung field..? ? Chest:? Lungs are clear.? Heart size is normal.? No pleural effusions.? No pneumoperitoneum.? ? Abdomen:? [id number] fecal stasis throughout the colon is seen.? No bowel obstruction.? No gross pneumoperitoneum.? No suspicious calcifications.? Visualized solid organ contours appear normal.? ? Bones:? No suspicious bony lesions.? ? IMPRESSION:? Avod-[id number] constipation.? No gross free air.? No acute cardiopulmonary pathology.? ? ? Dictated by: Michael Hong M.D. on 06/09/2022 at 21:05 ? ? Approved by: Michael Hong M.D. on 06/09/2022 at 21:05 ? MDM Narrative Medical decision making narrative: Multiple etiologies for patient's symptoms considered include, but not limited to: [Bowel obstruction versus kidney stone versus diverticulitis versus other Patient's symptoms improved over duration of stay with above-stated therapies. History, physical exam, labs, imaging, and response to therapies have been reassuring. Findings and discharge diagnosis discussed with patient/family followed by verbalization of understanding Return precautions discussed with patient/family whom verbalize understanding. Pain has been well controlled and patient is tolerating oral hydration. Discharge Plan Departure Patient Disposition: Home Clinical Impression: Abdominal pain, epigastric Activity Restrictions/Additional Instructions: *You have been diagnosed with [abdominal pain] * As we discussed your history and physical exam as well as labs and imaging are very reassuring. There is no evidence of any severe diagnoses that would require a specific or immediate intervention. *What to do: *Please continue to take your regular medications as directed. [x ] New medication prescriptions sent to your pharmacy: [ [facility]] *Please follow up with your primary care provider in 2-3 days, call for an appointment. Let them know you were seen in the Emergency Department and that we ask that you be seen in follow up. We will electronically transmit a record of today's note if your PCP is in our system *Please consider a clear liquid diet for the next 24-48 hours and then slowly advance to regular as tolerated. Also, try to avoid alcohol, nicotine, caffeine, spicy, acidic or fatty foods as this may worsen your symptoms *If you do not have a primary care provider please contact the [facility] Resource line at [phone]. They will ask some questions about your medical history and help get you set up with a doctor in the community. *Return to Emergency Department if you should have any new, worsening or concerning symptoms, such as [fever greater than 101 F, shaking chills, worsening pain, persistent vomiting or other bothersome symptoms] Prescriptions: New pantoprazole [Protonix] 40 mg tablet,delayed release (DR/EC) 40 mg PO DAILY Qty: 30 0RF ondansetron 4 mg tablet,disintegrating 4 mg PO TID-QID PRN (Reason: nausea and vomiting) Qty: 10 0RF No Action tadalafil [Cialis] 2.5 mg tablet 2.5 mg PO .5mg MDD MDD 5 mg MDD Qty: 90 0RF ibuprofen 600 mg tablet 600 mg PO Q6H PRN (Reason: pain) Qty: 20 0RF Referrals: Clifford Bloom DO [Primary Care Provider] -
[2022-06-09] MEDS: PANTOPRAZOLE 40 MG VIAL IV (21:10)
[2022-06-09] MEDS: SODIUM CHLORIDE 0.9% 1,000 ML 1000 ML IV (21:10)
[2022-06-09] MEDS: ONDANSETRON 4 MG/2 ML INJ IV (21:10)
[2022-06-09 21:22] LABS: Add Manual Diff / Slide Review NO; Basophils Absolute Auto 100 /uL (0-100); Basophils Percent Auto 0.6 % (0-2); Eosinophils Absolute Auto 300 /uL (0-450); Eosinophils Percent Auto 2.2 % (2-4); Hematocrit 44.6 % (41-53); Hemoglobin 15.6 g/dL (13.5-17.5); Lymphocytes Absolute Auto 1900 /uL (1100-4500); Lymphocytes Percent Auto 16.8 % (25-40); Mean Corpuscular Hemoglobin 31.4 PG (26-34); Monocytes Absolute Auto 500 /uL (0-900); Monocytes Percent Auto 4.4 % (3-14); Neutrophils Absolute Auto 8600 /uL (1500-7000); Platelet Count 271 X10^3/uL (150-400); Red Blood Cell Count 4.95 X10^6/uL (4.5-5.9); Red Cell Distribution Width 13.6 % (11.6-14.8); White Blood Cell Count 11.3 X10^3/uL (4.5-11.0)
[2022-06-09 21:33] LABS: Alanine Aminotransferase 26 IU/L (<50); Albumin 4.4 g/dL (3.5-5.0); Albumin Globulin Ratio 1.3 (1.0-2.8); Alkaline Phosphatase 69 U/L (38-126); Aspartate Aminotransferase 25 IU/L (17-59); BUN Creatinine Ratio 15.8 (6-22); Bilirubin Total 0.4 mg/dL (0.2-1.3); Blood Urea Nitrogen 15 mg/dL (9-20); Calcium 8.9 mg/dL (8.4-10.2); Carbon Dioxide 30 mmol/L (22-32); Chloride 102 mmol/L (98-107); Estimated Glomerular Filt Rate > 60 mL/min (>60); Globulin 3.4 g/dL (1.7-4.1); Glucose 146 mg/dL (70-100); HEMOLYSIS 35 (0-50); Lipase 53 U/L (23-300); Potassium 4.2 mmol/L (3.4-5.1); Sodium 138 mmol/L (137-145); Total Protein 7.8 g/dL (6.3-8.2)
--- NOTE | 2022-06-09 21:49 | DI.CT.S_ITS ---
PROCEDURE: CT ABDOMEN PELVIS W CON INDICATIONS: severe abdominal pain TECHNIQUE: After the administration of intravenous contrast, axial sections acquired from the lung bases to the pubic symphysis. Coronal and sagittal reformats were performed. For radiation dose reduction, the following was used: automated exposure control, adjustment of mA and/or kV according to patient size. COMPARISON: [facility], , US ABDOMEN LIMITED, 06/09/2022, 21:34. FINDINGS: Image quality: Excellent. Lung bases: 4 millimeter calcified granuloma is seen in posterior right middle lobe series 3, image 1. Heart: No significant findings. ABDOMEN: Liver: Liver is normal in size. Moderate hepatic steatosis is seen, no discrete hepatic lesion is seen. Gallbladder: Gallbladder is contracted. No calcified gallstone is seen. No gallbladder wall thickening or pericholecystic fluid. Biliary ducts: Unremarkable. Pancreas: Unremarkable. Spleen: Unremarkable. Adrenal Glands: Unremarkable. Kidneys and Ureters: Bilateral kidneys are normal in size and show normal enhancement. No renal stones or hydronephrosis. Slightly lobulated bilateral renal contour is seen which accounts for ultrasound findings. Stomach and Bowel: There is no bowel obstruction. Fluid distended stomach lumen is seen. There is questionable small bowel wall thickening throughout the abdomen. Mild wall thickening involving descending colon and sigmoid colon is present. No abscess collection. Sigmoid diverticulosis is seen, no significant pericolonic fat stranding. Peritoneum: No abnormal intraperitoneal fluid. No free air. Ventral Wall: No hernias. Abdominal Nodes: No retroperitoneal or mesenteric adenopathy by size criteria. Vessels: Aorta and inferior vena cava are normal in size. PELVIS: Pelvic Organs: Unremarkable. Bladder: Unremarkable. Pelvic Nodes: No enlarged lymph nodes. Miscellaneous: No hernias are seen. Bones: No suspicious bony lesion. No acute vertebral body compression fracture. IMPRESSION: 1. Small bowel and colon wall thickening as described above concerning for low-grade enterocolitis. Colonic diverticulosis without evidence of acute diverticulitis. No abscess collection. No free fluid or free air. 2. No renal stones or hydronephrosis. No discrete renal lesion is seen. Ultrasound finding likely represent persistent lobulated renal contour. 3. Hepatic steatosis, no discrete hepatic lesion. Normal appearing gallbladder. Dictated by: Michael Hong M.D. on 06/09/2022 at 22:15 Approved by: Michael Hong M.D. on 06/09/2022 at 22:19
[2022-06-09] MEDS: ONDANSETRON 4 MG ODT PREPACK 1 BOTTLE MISC (23:17)
== END 2022-06-09 23:28 | disposition home or self-care (01) ==
PROVIDERS: Emergency Provider Emergency Medicine; PCP Family Medicine
DX: R10.13 Epigastric pain (principal)
CPT/HCPCS: 36415; 74022; 74177; 76705; 80053; 81003; 83690; 85025; 93005; 93010; 96361; 96374; 96375; 99284; C9113; J2405; Q9967

== ENCOUNTER → 2022-06-18 11:55 | Outpatient (CLI) | payer BC, SELFPAY ==
[2022-06-18 13:33] LABS: COVID19 -Nasal RAPID Negative (Negative)
--- NOTE | 2022-06-18 14:25 | PM.TREADMILL ---
Cardiac Stress Test Report Referral & Results Date Patient Seen: 06/18/22 Time Patient Seen: 14:25 Requesting provider: José Arizmendi Indication: Right bundle branch block Rest ECG: Right bundle branch block Procedure Note: Today following both written and verbal informed consent the patient was exercised according to a standard Yobani protocol patient went for a total of 11 minutes achieving a maximum heart rate of 148 maximum systolic blood pressure of 182. This is approximately 12.8 METS. Exercise was terminated at this point because of targets were met. Patient was also given Cardiolite through a previously started Hep-Lock IV by the diagnostic imaging staff approximately 1 minute prior to the cessation of exercise. There were no notable EKG changes with exercise in the background of the resting right bundle branch block Normal heart rate and blood pressure response to exercise No dysrhythmias Function aerobic impairment rates approximately -25% on the active scale or 125% of normal Impression: No evidence of ischemia based on usual ECG criteria although underlying right bundle branch block may mask evidence of ischemia on plain 12 lead evaluation. Please see perfusion imaging report for details regarding possible ischemia as well Patient with excellent exercise capacity Please note: Actual ECG tracings can be found in the PACS system.
--- NOTE | 2022-06-19 20:28 | DI.NM.S_ITS ---
DATE OF SERVICE: 06/18/2022 PROCEDURE: Exercise perfusion study. INDICATION: Abnormal EKG with right bundle branch block and left anterior fascicular block, palpitation. RADIOPHARMACEUTICAL: 24.8 millicurie technetium-99m Myoview IV was injected at stress and 26.7 millicurie technetium-99m Myoview IV was injected at rest. CARDIAC STRESS: The patient walked on Yobani protocol for 11 minutes, achieved maximum heart rate of 148, which was 92 percent of target heart rate. Baseline blood pressure 147/86 mmHg. Peak blood pressure 182/85 mmHg. Baseline rhythm was sinus with right bundle branch block and left anterior fascicular block. During exercise, no convincing ischemic changes seen. No new significant arrhythmias seen. The patient met target heart rate. No anginal symptoms. Achieved 12.8 METS of workload and RYAN -25 percent. RAW DATA: There is increased subdiaphragmatic activity. Soft tissue shadow seen involving the inferior border of the heart, as well as base of the heart. The patient's weight is 222 pounds. GATED STUDY: Resting LV ejection fraction 69 and stress LV ejection fraction 75 percent without any obvious wall motion abnormalities. Resting end-diastolic volume 119 mL. TID ratio 0.80, which is within normal limits. Lung/heart ratio 0.29, which is within normal limits. MYOCARDIAL PERFUSION SCAN: Stress supine, resting supine and stress prone images were compared to each other. Stress supine and resting supine images revealed small size, mildly decreased perfusion of basal inferior wall extending into the basal inferolateral wall. During stress prone images, there was some improvement, predominantly in the basal inferior wall. However, persistent tissue attenuation artifact seen in the basal inferolateral wall. No reversible ischemia. CONCLUSION: 1. No obvious reversible ischemia. 2. There is persistent mildly decreased perfusion of basal inferolateral wall and improvement of basal inferior wall in the stress prone images. On raw data, there is increased subdiaphragmatic activity and soft tissue shadow seen near the inferior border of the heart and base of the heart. On gated study, inferior wall is moving well. Overall, no regional wall motion abnormalities. The stress left ventricular ejection fraction 75 percent and resting LV ejection fraction 69 percent. Hence, most likely we are dealing with tissue attenuation artifact, rather than true small basal inferolateral infarction. 3. Excellent exercise tolerance. The patient walked on Yobani protocol for 11 minute. 12.8 metabolic equivalents of workload and functional aerobic impairment -25 percent. Normal hemodynamic response. Baseline right bundle branch block and left anterior fascicular block. No new ischemic changes. No new significant arrhythmias or ischemic changes seen. 4. Hence, overall this is a low-risk exercise perfusion study. MartínezYuri montes - Osvaldo/jason doc#: [id number]/job#: [id number] dd: 06/19/2022 17:16:00 dt: 06/19/2022 19:57:00 DICTATING MD/COPIES TO: Marie Rodriguez MD COPIES MNE: BEN;
== END ==
PROVIDERS: PCP Family Medicine; Referring Provider Family Medicine; Visit Provider Family Medicine
DX: I45.2 Bifascicular block (principal); R94.31 Abnormal electrocardiogram [ECG] [EKG]
CPT/HCPCS: 78452; 87635; 93016; 93017; 93018; A9502